=== PATIENT | male | born 1975 | race American Indian/Alaskan Native ===

== ENCOUNTER 2020-05-18 21:42 | Emergency (ER) | payer SELFPAY ==
[2020-05-18 21:58] VITALS: BP 125/78
== END 2020-05-19 01:30 | disposition left against medical advice (07) ==
LOC: ED 21:42
DX: J02.9 Acute pharyngitis, unspecified (principal); Z53.21 Procedure and treatment not carried out due to patient leaving prior to being seen by health care provider